=== PATIENT | male | born 1975 | race American Indian/Alaskan Native ===

== ENCOUNTER 2017-04-19 14:22 | Emergency (ER) | payer OTHER ==
[2015-03-15 12:18] VITALS: BMI 38.0
[2017-04-19 14:31] VITALS: TEMP 98
--- NOTE | 2017-04-19 14:50 | C.PDOC ---
History Of Present Illness 41-year-old male, PMHx includes Hypertension, presents to the emergency department with complaints of two episodes of blood noticed at the urethral meatus. Patient denies history of kidney stones, fevers, chills, abdominal pain , back pain, hematuria, dysuria, discharge or scrotal pain. No other complaints at this time. Time Seen by Provider: 04/19/17 14:49 Chief Complaint (Nursing): Male Genitourinary History Per: Patient History/Exam Limitations: no limitations Onset/Duration Of Symptoms: Other (two episodes) Past Medical History Reviewed: Historical Data, Nursing Documentation, Vital Signs Vital Signs: Last Vital Signs Temp 98 F 04/19/17 16:42 Pulse 58 L 04/19/17 16:42 Resp 20 04/19/17 16:42 BP 114/68 04/19/17 16:42 Pulse Ox 97 04/19/17 18:15 - Medical History PMH: HTN, Hypercholesterolemia, Sleep Apnea (WEARS CPAP) - [facility] Procedures ETHMOIDECTOMY (03/24/15) EXC MAX SINUS LESION NEC (03/24/15) FRONTAL SINUSECTOMY (03/24/15) SEPTOPLASTY NEC (03/24/15) SPHENOIDECTOMY (03/24/15) Family History: States: No Known Family Hx - Social History Hx Alcohol Use: No Hx Substance Use: No - Immunization History Hx Tetanus Toxoid Vaccination: No Hx Influenza Vaccination: No Hx Pneumococcal Vaccination: No Review Of Systems Constitutional: Negative for: Fever Gastrointestinal: Negative for: Abdominal Pain Genitourinary: Positive for: Other. Negative for: Dysuria, Frequency, Hematuria , Penile Discharge, Scrotal Pain, Rash Musculoskeletal: Negative for: Back Pain Physical Exam - Physical Exam Appears: Non-toxic, No Acute Distress Neck: Normal ROM Gastrointestinal/Abdominal: Soft, No Tenderness Back: No CVA Tenderness Male Genital: No Testicular Tenderness, No Testicular Swelling, No Scrotal Swelling, Circumcised, Other (Analytics Consultant: Johnathon SHRESTHA. No blood visualized at meatus. No lesions or discharge.) Neurological/Psych: Oriented x3 ED Course And Treatment O2 Sat by Pulse Oximetry: 97 Medical Decision Making Medical Decision Making: Impression Blood at meatus Plan: * GC/Chlamydia * Urine Culture * Urinalysis * Reassess and Disposition Progress: pt made aware he needs to follow up with urology. pt is ex-smoker, smokes marijuana sometimes. Disposition Counseled Patient/Family Regarding: Studies Performed, Diagnosis, Need For Followup - Disposition Referrals: Alexx Manjarrez MD [Staff Provider] - Alf Rosas MD [Staff Provider] - Disposition: HOME/ ROUTINE Disposition Time: 16:36 Condition: STABLE Additional Instructions: Follow up with your primary care doctor and with the urologist. Return to ER for worse bleeding. difficulty or painful urinating or any other concerns. Instructions: Acute Hematuria (ED) Forms: General Discharge Instructions - Clinical Impression Clinical Impression: Hematuria - Scribe Statement The provider has reviewed the documentation as recorded by the Scribe Afsaneh Carr All medical record entries made by the Joseibe were at my direction and personally dictated by me. I have reviewed the chart and agree that the record accurately reflects my personal performance of the history, physical exam, medical decision making, and the department course for this patient. I have also personally directed, reviewed, and agree with the discharge instructions and disposition.
[2017-04-19 15:21] LABS: RBC URINE 68 /hpf (0-3); URINE BACTERIA RARE (<OCC); URINE BILIRUBIN NEGATIVE (NEGATIVE); URINE BLOOD 2+ (NEGATIVE); URINE COLOR Yellow (YELLOW); URINE GLUCOSE (UA) NORMAL (Normal); URINE KETONE NEGATIVE (NEGATIVE); URINE LEUKOCYTE ESTERASE NEG Leu/uL (Negative); URINE PROTEIN NEGATIVE (NEGATIVE); WBC URINE 3 /hpf (0-5)
[2017-04-19 16:43] VITALS: BP 114/68; PULSE 58; RESP 20
[2017-04-19 18:09] VITALS: O2SAT 97
== END 2017-04-19 16:43 | disposition home or self-care (01) ==
LOC: C.ER 14:22
DX: R31.9 Hematuria, unspecified (principal)

== ENCOUNTER 2017-06-18 18:54 | Emergency (ER) | payer OTHER ==
[2017-06-18 19:00] VITALS: BMI 34.4
--- NOTE | 2017-06-18 20:41 | C.PDOC ---
History Of Present Illness 41 year old male who presents to the ER with a complaint of right forearm pain that worsens with movement after falling on Friday. Patient denies head injury, LOC, weakness, or numbness. Time Seen by Provider: 06/18/17 19:21 Chief Complaint (Nursing): Upper Extremity Problem/Injury History Per: Patient History/Exam Limitations: no limitations Onset/Duration Of Symptoms: Days Current Symptoms Are (Timing): Still Present Exacerbating Factor(s): Movement Recent travel outside of the [place]: No Past Medical History Reviewed: Historical Data, Nursing Documentation, Vital Signs Vital Signs: Last Vital Signs Temp 98.3 F 06/18/17 20:55 Pulse 61 06/18/17 20:55 Resp 16 06/18/17 20:55 BP 147/85 06/18/17 20:55 Pulse Ox 100 06/18/17 20:55 - Medical History PMH: HTN, Hypercholesterolemia, Sleep Apnea (WEARS CPAP) - [facility] Procedures ETHMOIDECTOMY (03/24/15) EXC MAX SINUS LESION NEC (03/24/15) FRONTAL SINUSECTOMY (03/24/15) SEPTOPLASTY NEC (03/24/15) SPHENOIDECTOMY (03/24/15) Family History: States: Unknown Family Hx - Social History Hx Alcohol Use: No Hx Substance Use: No - Immunization History Hx Tetanus Toxoid Vaccination: No Hx Influenza Vaccination: No Hx Pneumococcal Vaccination: No Review Of Systems Gastrointestinal: Negative for: Nausea, Vomiting Musculoskeletal: Positive for: Arm Pain Neurological: Negative for: Weakness, Numbness, Other (LOC) Physical Exam - Physical Exam Appears: Non-toxic Skin: Normal Color, Warm, Dry Head: Atraumatic, Normacephalic Eye(s): bilateral: Normal Inspection, EOMI Oral Mucosa: Moist Extremity: Normal ROM (With pain to right elbow), Tenderness (To right wrist, right forearm, right elbow), No Deformity, No Swelling Pulses: Left Radial: Normal, Right Radial: Normal Neurological/Psych: Oriented x3, Normal Speech, Normal Cognition ED Course And Treatment O2 Sat by Pulse Oximetry: 97 (Room air) Pulse Ox Interpretation: Normal - Other Rad Right forearm x-ray X-Ray: Interpreted by Me, Viewed By Me Interpretation: No acute fractures or dislocations. Right wrist x-ray X-Ray: Interpreted by Me, Viewed By Me Interpretation: No acute fractures or dislocations. Progress Note: Motrin administered. Right forearm x-ray and right wrist x-ray ordered. On reevaluation, patient reports his pain has improved; will discharge home with instructions to follow up with PMD. Disposition Counseled Patient/Family Regarding: Diagnosis, Need For Followup, Rx Given - Disposition Referrals: [facility] [Outside] Disposition: HOME/ ROUTINE Disposition Time: 20:37 Condition: STABLE Additional Instructions: Take motrin for pain Follow up in clinic Return to ER if worse Prescriptions: Ibuprofen [Motrin] 600 mg PO Q6H #30 tab Instructions: Contusion in Adults (ED) Forms: [employer] (Cuban) - Clinical Impression Clinical Impression: Contusion of forearm, right - Scribe Statement The provider has reviewed the documentation as recorded by the [employer] All medical record entries made by the Scribe were at my direction and personally dictated by me. I have reviewed the chart and agree that the record accurately reflects my personal performance of the history, physical exam, medical decision making, and the department course for this patient. I have also personally directed, reviewed, and agree with the discharge instructions and disposition.
[2017-06-18 20:56] VITALS: BP 147/85; PULSE 61; RESP 16; TEMP 98.3
[2017-06-18 21:13] VITALS: O2SAT 97
--- NOTE | 2017-06-19 08:54 | RAD ---
PROCEDURE: Radiographs of the Right Forearm HISTORY: pain, swelling to right elbow COMPARISON: None available. TECHNIQUE: Frontal and lateral views obtained. The lateral view is obliqued FINDINGS: BONES: A nondisplaced radial head/neck fracture is suspect per cortical offset JOINT SPACES: Unremarkable. OTHER FINDINGS: None. IMPRESSION: Nondisplaced radial head/neck fracture Comments: The discrepancy was placed in physician note tracking. Dr. Ferreira in ER also also notified 06/19/2017 at 8:50 a.m.
--- NOTE | 2017-06-19 08:56 | RAD ---
PROCEDURE: Right Wrist Radiographs. HISTORY: pain, fall COMPARISON: None. FINDINGS: BONES: Possible flake chip/osseous avulsion at 1 mm just distal to the ulnar styloid (versus prior ossific debris). Correlate with clinical tender point. JOINTS: Normal. No dislocation. SOFT TISSUES: Normal. OTHER FINDINGS: None. IMPRESSION: Possible flake chip/osseous avulsion at 1 mm just distal to the ulnar styloid (versus prior ossific debris). Correlate with clinical tender point.
== END 2017-06-18 20:56 | disposition home or self-care (01) ==
LOC: C.ER 18:54
DX: S50.11XA Contusion of right forearm, initial encounter (principal); S52.124A Nondisplaced fracture of head of right radius, initial encounter for closed fracture; S52.134A Nondisplaced fracture of neck of right radius, initial encounter for closed fracture; V18.0XXA Pedal cycle driver injured in noncollision transport accident in nontraffic accident, initial encounter; Y92.89 Other specified places as the place of occurrence of the external cause

== ENCOUNTER 2017-06-19 17:35 | Emergency (ER) | payer OTHER ==
[2017-06-19 17:35] VITALS: BMI 34.4
[2017-06-19 17:49] VITALS: BP 154/83; PULSE 73; RESP 13; TEMP 98; O2SAT 98
--- NOTE | 2017-06-19 18:24 | C.PDOC ---
History Of Present Illness 41 y/o male presents to ED s/p wrist injury as he was advised to return to ER after evaluation last night with positive x-ray reading. Denies any new complaints. Time Seen by Provider: 06/19/17 17:52 Chief Complaint (Nursing): Upper Extremity Problem/Injury History Per: Patient History/Exam Limitations: no limitations Onset/Duration Of Symptoms: Days Current Symptoms Are (Timing): Still Present Quality: "Pain" Recent travel outside of the [place]: No Past Medical History Reviewed: Historical Data, Nursing Documentation, Vital Signs Vital Signs: Last Vital Signs Temp 98 F 06/19/17 17:44 Pulse 73 06/19/17 17:44 Resp 13 06/19/17 17:44 BP 154/83 H 06/19/17 17:44 Pulse Ox 98 06/19/17 18:24 - Medical History PMH: HTN, Hypercholesterolemia, Sleep Apnea (WEARS CPAP) - [facility] Procedures ETHMOIDECTOMY (03/24/15) EXC MAX SINUS LESION NEC (03/24/15) FRONTAL SINUSECTOMY (03/24/15) SEPTOPLASTY NEC (03/24/15) SPHENOIDECTOMY (03/24/15) Family History: States: Unknown Family Hx - Social History Hx Alcohol Use: No Hx Substance Use: No - Immunization History Hx Tetanus Toxoid Vaccination: No Hx Influenza Vaccination: No Hx Pneumococcal Vaccination: No Review Of Systems Except As Marked, All Systems Reviewed And Found Negative. Musculoskeletal: Positive for: Other (wrist pain, R) Skin: Negative for: Rash Neurological: Negative for: Weakness, Numbness Physical Exam - Physical Exam Appears: Non-toxic, No Acute Distress Skin: Normal Color, Warm, Dry Head: Atraumatic, Normacephalic Extremity: Tenderness (left wrist, lateral), Capillary Refill (< 2 sec.), Other (decreased ROM of left wrist) Extremity: Bilateral: Normal Color And Temperature Pulses: Left Radial: Normal, Right Radial: Normal Neurological/Psych: Oriented x3, Normal Motor, Normal Sensation ED Course And Treatment O2 Sat by Pulse Oximetry: 98 (RA) Pulse Ox Interpretation: Normal Progress Note: Volar splint applied, checked by me. Patient tolerated well. Advised f/u with ortho. Disposition - Disposition Referrals: [facility] [Outside] Pending Sale To [facility] [Outside] Rahul Cheung III, MD [Staff Provider] - Disposition: HOME/ ROUTINE Disposition Time: 18:22 Condition: STABLE Additional Instructions: Follow up with Orthopedist within 2-3 days. Return to ED if feel worse. Instructions: Wrist Fracture in Adults (ED) Forms: [facility] (Kiswahili) - Clinical Impression Clinical Impression: Wrist fracture - PA / ANALYSIS CONSULTANT / Resident Statement MD/DO has reviewed & agrees with the documentation as recorded. - Scribe Statement The provider has reviewed the documentation as recorded by the Joseibe All medical record entries made by the Scribe were at my direction and personally dictated by me. I have reviewed the chart and agree that the record accurately reflects my personal performance of the history, physical exam, medical decision making, and the department course for this patient. I have also personally directed, reviewed, and agree with the discharge instructions and disposition.
== END 2017-06-19 18:32 | disposition home or self-care (01) ==
LOC: C.ER 17:35
DX: S62.101G Fracture of unspecified carpal bone, right wrist, subsequent encounter for fracture with delayed healing (principal); X58.XXXD Exposure to other specified factors, subsequent encounter

== ENCOUNTER 2018-04-30 10:48 | Emergency (ER) | payer OTHER ==
[2018-04-30 10:54] VITALS: BMI 30.5
[2018-04-30 10:57] VITALS: BP 143/86; PULSE 58; RESP 18; TEMP 98; O2SAT 100
[2018-04-30] MEDS ORDERED: Tetanus/Diphtheria Toxoids 0.5 ml Syringe IM ONE (11:43)
--- NOTE | 2018-04-30 11:45 | C.PDOC ---
History Of Present Illness 42 y/o male presents to the ER for evaluation of a laceration to the left 3rd finger whish he sustained while he was at a [employer] shop yesterday. Patient states that the horner was using a razor to cut his hair when he accidentally moved his left hand. Patient denies having other complaints at this time. Time Seen by Provider: 04/30/18 11:34 Chief Complaint (Nursing): Abnormal Skin Integrity History Per: Patient History/Exam Limitations: no limitations Onset/Duration Of Symptoms: Days Current Symptoms Are (Timing): Still Present Severity: Moderate Past Medical History Reviewed: Historical Data, Nursing Documentation, Vital Signs Vital Signs: Last Vital Signs Temp 98 F 04/30/18 10:54 Pulse 58 L 04/30/18 10:54 Resp 18 04/30/18 10:54 BP 143/86 04/30/18 10:54 Pulse Ox 100 04/30/18 12:20 - Medical History PMH: HTN, Hypercholesterolemia, Sleep Apnea (WEARS CPAP) Other Surgeries: Hx of surgeries - [facility] Procedures ETHMOIDECTOMY (03/24/15) EXC MAX SINUS LESION NEC (03/24/15) FRONTAL SINUSECTOMY (03/24/15) SEPTOPLASTY NEC (03/24/15) SPHENOIDECTOMY (03/24/15) Family History: States: No Known Family Hx - Social History Hx Alcohol Use: No Hx Substance Use: No - Immunization History Hx Tetanus Toxoid Vaccination: No Hx Influenza Vaccination: No Hx Pneumococcal Vaccination: No Review Of Systems Except As Marked, All Systems Reviewed And Found Negative. Skin: Positive for: Other (laceration to left 3rd finger) Physical Exam - Physical Exam Appears: Non-toxic, No Acute Distress Skin: Normal Color, Warm, Dry, Other (1.5 cm laceration to left 3rd digit with granulation tissue) Head: Atraumatic, Normacephalic Eye(s): bilateral: Normal Inspection Nose: Normal Oral Mucosa: Moist Neck: Supple Chest: Symmetrical Extremity: Normal ROM Neurological/Psych: Oriented x3, Normal Speech ED Course And Treatment O2 Sat by Pulse Oximetry: 100 (RA) Pulse Ox Interpretation: Normal Progress Note: Patient administered tetanus injection. Steri strips and finger splint were applied to the left 3rd digit. Patient tolerated well. Patient has been discharged, told to follow up with PMD in 2 days, and return to ER if symptoms worsen. Laceration - Laceration Repair Left 3rd Digit Wound Length (In cm): 1.5 cm Description Of Wound: Linear (granulation tissue noted) Wound Examination: Irrigated With Saline Wound Closure: Steri Strips Wound Complexity: Simple Disposition - Disposition Referrals: Alf Rosas MD [Staff Provider] - Disposition: HOME/ ROUTINE Disposition Time: 11:43 Condition: STABLE Additional Instructions: Follow up with your PMD within 1-2 days. Return to ED if feel worse. Instructions: Wound Care (DC) Forms: [facility] (Romanian) - Clinical Impression Clinical Impression: Finger laceration
== END 2018-04-30 12:04 | disposition home or self-care (01) ==
LOC: C.ER 10:48
DX: S61.213A Laceration without foreign body of left middle finger without damage to nail, initial encounter (principal); W45.8XXA Other foreign body or object entering through skin, initial encounter; Y92.89 Other specified places as the place of occurrence of the external cause